=== PATIENT | female | born 1985 | race African-American/Black ===

== ENCOUNTER 2021-08-13 17:59 | Emergency (ER) | payer OTHER, SELFPAY ==
[2021-08-13] MEDS ORDERED: Ibuprofen 200 MG TAB ONE (19:40)
== END 2021-08-13 19:20 | disposition home or self-care (01) ==
LOC: CSHERS 17:59
DX: S16.1XXA Strain of muscle, fascia and tendon at neck level, initial encounter (principal); V89.2XXA Person injured in unspecified motor-vehicle accident, traffic, initial encounter
CPT/HCPCS: 99283